=== PATIENT | male | born 1960 | race Caucasian/White ===

== ENCOUNTER → 2017-06-07 | Outpatient (CLI) | payer OTHER ==
[~2017-06-07] MED LIST: FEBU40TA PO
[2017-06-07 19:01] LABS: INFLUENZA B ANTIGEN Neg for Influ B (NEG)
== END | disposition home or self-care (01) ==
LOC: C.LABSPEC 17:49
PROVIDERS: ATTEND Internal Medicine
DX: B34.9 Viral infection, unspecified (principal)

== ENCOUNTER → 2017-07-29 | Outpatient (CLI) | payer OTHER | END | disposition home or self-care (01) | LOC: C.LABSPEC 17:32 | PROVIDERS: ATTEND Internal Medicine | DX: L43.9 Lichen planus, unspecified (principal) ==

== ENCOUNTER 2019-04-10 08:58 | Inpatient (IN) ==
--- NOTE | 2019-03-13 14:34 | PAT Medication Instructions ---
Medication Instructions Date of Service March 13, 2019 Home Medications colchicine [Colcrys] 0.6 mg PO BID PRN cyanocobalamin (vitamin B-12) [Vitamin B-12] 2,500 mcg SUBLINGUAL HS febuxostat [Uloric] 40 mg PO QAM Luz Maria 1 tab PO QAM STOP taking 2 weeks before surgery (or as soon as possible if surgery is within 2 weeks) Luz Maria 1 tab PO QAM STOP taking 48 hours before surgery colchicine [Colcrys] 0.6 mg PO BID PRN febuxostat [Uloric] 40 mg PO QAM Take evening before surgery cyanocobalamin (vitamin B-12) [Vitamin B-12] 2,500 mcg SUBLINGUAL HS Other Notes If you have any questions please call us at [phone] or [phone] or [phone] or [phone]
--- NOTE | 2019-03-16 13:16 | Anesthesiology Consultation ---
Date of Service March 16, 2019 Assessment & Plan (1) Encounter for pre-operative examination: Chart Review Chart Review: Acceptable Risk for Surgery and Patient seen in Pre Admission Testing Teaching & Discussion Pre-Anesthesia Teaching/Discussion Notes: Instructed NPO after midnight before surgery,except medications with 15 cc of water. Medication instructions provided according to the PAT guidelines. History Surgery Operation Date: 04/10/19 13:15 Proposed Procedures p Right Total Shoulder Arthroplasty - Tigre Daniels DO Height/Weight Height: 5 ft 3 in Weight: 105.6 kg Allergies Allergy/AdvReac Type Severity Reaction Status Date / Time allopurinol Allergy Intermediate hives Verified 03/12/19 10:08 Medications Home Medications Medication Instructions Recorded Confirmed Last Taken colchicine [Colcrys] 0.6 mg PO BID PRN 05/01/18 03/16/19 Unknown cyanocobalamin (vitamin B-12) 2,500 mcg SUBLINGUAL HS 05/01/18 03/16/19 04/30/18 [Vitamin B-12] febuxostat [Uloric] 40 mg PO QAM 05/01/18 03/16/19 05/01/18 Luz Maria 1 tab PO QAM 03/12/19 03/12/19 Unknown morinda citrifolia fruit 250 mg mg PO 03/16/19 03/16/19 Unknown capsule Past Medical History Medical History Gout History of rheumatic fever as a child Morbid obesity Osteoarthritis Exercise / Class Metabolic Activity II 4-5 Yardwork/Stairs/Walk up hill (one flight of stairs (no chest pain/no sob)) Past Family History Family History Other No significant family history Past Surgical History Surgical History Hx of colonoscopy Past Anesthesia History No Hx of Anesthesia Complications and No Family Hx of Anesthesia Complications History of PONV No Hx of PONV and No Hx of Motion Sickness Social History Smoking Status: Never smoker Do You Dip or Chew Tobacco: No Hx Alcohol Use: Yes Alcohol type: beer alcohol intake frequency: a few times a month Hx Substance Use: No substance use type: does not use Review of Systems Patient denies chest pain, shortness of breath, dyspnea on exertion, reflux, cough, wheezing, palpitations. Physical Exam Vital Signs VITALS BP 160/92 (per patient, BP typically in normal range/monitoring routinely at home/PCP (Dr. Marques Adams) P 77 TEMP 98.6 SP02 95%RA RESP 16 PHYSICAL Full neck and c-spine range of motion. Full TMJ range of motion. TMD 4 finger breaths Mallampati Score 2 Dentition: several chipped teeth including lower front, missing molars Lungs: clear throughout to auscultation Cardiac: regular rate and rhythm, no murmurs noted Spine: normal Carotid arteries: negative bruit Extremities: no edema Short, thick neck Testing Laboratory Results 03/16/19 13:40 03/16/19 13:40 PT 10.1 Seconds (9.0-12.0) 03/16/19 13:40 INR 1.0 (0.9-1.1) 03/16/19 13:40 APTT 29.9 Seconds (21.0-31.0) 03/16/19 13:40 Blood Type A Positive 03/16/19 13:40 Antibody Screen NEGATIVE 03/16/19 13:40 *Surgeon office made aware of low WBC* Electrocardiogram Date: 03/16/19 Findings: + NSR @ (69) Chest X-Ray Date: 03/16/19 Findings: + NAD
--- NOTE | 2019-03-16 13:56 | XRay Report ---
XR chest Pre-admission PA/Lat CLINICAL HISTORY: PAT preoperative evaluation COMPARISON STUDY: No previous studies for comparison. FINDINGS: The bones soft tissues and hemidiaphragms are normal. The cardiomediastinal silhouette is n ormal. The lungs are clear. The pulmonary vasculature is normal. IMPRESSION: Negative chest. The above report was generated using voice recognition software. It may contain grammatical, syntax or spelling errors. Electronically signed by: Kevin Minor M.D. 03/16/2019 1:55 PM
[2019-03-16 14:30] LABS: Basophils # (auto) 0.01 K/uL (0-0.2); Basophils % (auto) 0.3 %; Eosinophils # (auto) 0.04 K/uL (0-0.5); Eosinophils % (auto) 1.1 %; Hematocrit (blood only) 44.8 % (42-52); Hemoglobin 15.9 g/dL (14.0-18.0); Immature Granulocytes # (auto) 0.01 K/uL (0.00-0.02); Immature Granulocytes % (auto) 0.3 %; Lymphocytes # (auto) 1.28 K/uL (1.2-3.4); Lymphocytes % (auto) 36.2 %; Mean Corpuscular Hgb Conc 35.5 g/dL (32-36); Mean Corpuscular Volume 95.7 fL (80-100); Mean Platelet Volume 9.6 fL (7.4-10.4); Monocytes # (auto) 0.33 K/uL (0.11-0.59); Monocytes % (auto) 9.3 %; Neutrophils # (auto) 1.87 K/uL (1.4-6.5); Neutrophils % (auto) 52.8 %; Platelet Count 200 K/uL (130-400); RDW Coefficient of Variation 12.6 % (11.5-14.5); RDW Standard Deviation 43.4 fL (36.4-46.3); Red Blood Count 4.68 M/uL (4.7-6.1); White Blood Count 3.54 K/uL (4.8-10.8)
[2019-03-16 14:39] LABS: BUN Creatinine Ratio 12.2 (10-20); Calcium 9.7 mg/dl (8.5-10.1); Creatinine Clr Calc Pharmacy 83.1 ml/min; Est GFR (African American) 89.9; Est GFR (Non-African American) 77.5; Potassium 4.1 mmol/L (3.5-5.1)
[2019-03-16 14:51] LABS: Partial Thromboplastin Ratio 1.1; Partial Thromboplastin Time 29.9 Seconds (21.0-31.0); Prothrombin Time 10.1 Seconds (9.0-12.0)
--- NOTE | 2019-04-09 14:54 | History & Physical Report ---
Date of Service April 09, 2019 Assessment & Plan (1) Osteoarthritis of right shoulder: We will proceed with a right total shoulder arthroplasty. Postoperatively he will be placed in a sling and kept overnight in the hospital for postoperative medical management. He has not chosen postoperative physical therapy yet. Present on Admission?: Yes History of Present Illness Chief Complaint: Primary osteoarthritis of the right shoulder Primary Care Provider: Mata Chi MD Richy is a pleasant 58-year-old male who has been dealing with chronic increasing right shoulder pain. X-rays and clinical examination have been diagnostic for primary osteoarthritis of the right shoulder. After failing conservative treatment, he has elected to proceed with a right total shoulder arthroplasty. Allergies Allergy/AdvReac Type Severity Reaction Status Date / Time allopurinol Allergy Intermediate hives Verified 03/12/19 10:08 Home Medications Home Medications Medication Instructions Recorded Confirmed Type colchicine [Colcrys] 0.6 mg PO BID PRN 05/01/18 03/16/19 History cyanocobalamin (vitamin B-12) 2,500 mcg SUBLINGUAL HS 05/01/18 03/16/19 History [Vitamin B-12] febuxostat [Uloric] 40 mg PO QAM 05/01/18 03/16/19 History Luz Maria 1 tab PO QAM 03/12/19 03/12/19 History morinda citrifolia fruit 250 mg mg PO 03/16/19 03/16/19 History capsule Past Med/Surg History Medical History Gout History of rheumatic fever as a child Morbid obesity Osteoarthritis Surgical History Hx of colonoscopy Family History Other No significant family history Social History Preferred Language: Setswana Communication Ability: Effective Cut Press Operator Required: No Beliefs That Will Affect Care: None Current Living Situation: Spouse Other Information That Helps Us Care for You: No Feels Safe at Home: Yes Safety Concerns: Feels Safe At This Time Smoking Status: Never smoker Do You Dip or Chew Tobacco: No ; Second Hand Exposure: No ; Tobacco Cessation Education Requested by Patient: No Hx Alcohol Use: Yes Alcohol type: beer Hx Substance Use: No Review of Systems All systems reviewed & are unremarkable except as noted in HPI & below Physical Exam 2 Constitutional: WD/WN, vitals as above Eyes: PERRL, conjunctivae normal, anicteric sclerae ENMT: external ear and nose normal, oropharynx normal Neck: trachea midline, no thyromegaly Respiratory: normal respiratory effort Cardiovascular: RRR, no murmur, no edema Gastrointestinal (Abdomen): normal bowel sounds, soft, nontender, no hepatosplenomegaly Musculoskeletal: Physical examination of the right shoulder reveals decreased range of motion and crepitis throughout. There is good strength with full can testing and external rotation. There is tenderness palpation along the anterior glenohumeral joint line. The right upper extremity is neurovascularly intact. Psychiatric: A+Ox3, euthymic affect Results & Data Diagnostic Findings Radiographs of the right shoulder show osteoarthritis of the glenohumeral joint. There is joint space narrowing, osteophyte formation, and [id number] articulation.
[~2019-04-10 08:58] MED LIST changes: +ACETAMINOPHEN 500 MG TAB PO SCH; +BUPIVACAINE 0.5 % 5 MG/1 ML PF 10ML VIAL ONE; +CEFAZOLIN 2000MG 2,000 MG/15 ML SYR IV SCH; +FAMOTIDINE 20 MG TAB PO SCH; -FEBU40TA PO; +GABAPENTIN 600 MG DOSE PO SCH; +LR 15ML/HR IV SCH; +LR 60ML/HR IV SCH; +ROPIVACAINE 0.5% HCL/PF 150 MG, BUPIVACAINE 0.5% MPF 30 ML, EPINEPHrine 30MG/30ML (OR U... INSTIL SCH; +TRANEXAMIC ACID 1,000 MG **IV Intra-op IV SCH; +TRANEXAMIC ACID 1,000 MG **IV Pre-op IV SCH
[2019-04-10] MEDS ORDERED: TRANEXAMIC ACID / 0.7% NACL 1000MG/100ML BAG IV ONE (09:36)
--- NOTE | 2019-04-10 10:12 | History & Physical Bridge Note ---
Date of Service April 10, 2019 History & Physical Bridge Note I have examined the patient, reviewed the History & Physical and in the interval since the performance of the History & Physical I have noted the following changes of clinical significance: no changes noted
[2019-04-10] MEDS ORDERED: MIDAZOLAM HCL 1 MG/ML 2ML VIAL ONE (10:19)
[2019-04-10] MEDS ORDERED: fentaNYL citrate 100 MCG/2 ML VIAL ONE ×2 (10:20→12:03)
[2019-04-10] MEDS ORDERED: ROCURONIUM BROMIDE 10 MG/ML 5 ML VIAL ONE (10:23)
[2019-04-10] MEDS ORDERED: ONDANSETRON INJ 2 MG/ML 2 ML VIAL ONE (10:23)
[2019-04-10] MEDS ORDERED: NEOSTIGMINE METHYLSULFATE 5 MG/5 ML SYR ONE (10:23)
[2019-04-10] MEDS ORDERED: PROPOFOL IV EMULSION 10 MG/ML 20 ML VIAL IV ONE (10:23)
[2019-04-10] MEDS ORDERED: GLYCOPYRROLATE 0.2 MG/ML VIAL ONE (10:23)
[2019-04-10] MEDS ORDERED: ORTHO JOINT ANESTHETIC ONE (10:55)
[2019-04-10] MEDS ORDERED: fentaNYL citrate 100 MCG/2 ML VIAL IV PRN (11:06)
[2019-04-10] MEDS ORDERED: ePHEDrine sulfate 50 MG/ML AMP IV PRN (11:06)
[2019-04-10] MEDS ORDERED: ATROPINE SULFATE 0.1 MG/ML 10ML SYR IV PRN (11:06)
[2019-04-10] MEDS ORDERED: ONDANSETRON INJ 2 MG/ML 2 ML VIAL IV PRN ×2 (11:06→15:12)
[2019-04-10] MEDS ORDERED: PHENYLEPHRINE 100MCG/ML 5ML SYR ONE (12:15)
[2019-04-10] MEDS ORDERED: ePHEDrine sulfate 50 MG/ML AMP ONE (12:25)
--- NOTE | 2019-04-10 13:31 | Operative Report ---
PG Post Operative Report Pre & Post Diagnosis Operation Date: 04/10/19 11:50 Pre-Op Diagnosis: RIGHT SHOULDER DEGENERATIVE JOINT DISEASE Post-Op Diagnosis: RIGHT SHOULDER DEGENERATIVE JOINT DISEASE I identified the patient and participated in the time-out.: Yes Procedure Operation Date: 04/10/19 11:50 Actual Procedures p Right Total Shoulder Arthroplasty(Right) - Tigre Daniels DO Surgeon Tigre Daniels DO System Support Technician Tigre Singh PAC Estimated Blood Loss 400 Findings Consistent with Post-Op Diagnosis Specimens Right humeral head Complications none Disposition Disposition: Recovery Room Indications Richy is a pleasant 59-year-old male who presented my office with chronic increasing right shoulder pain. X-rays and clinical examination were diagnostic for advanced osteoarthritis of the right shoulder. After failing conservative treatment, he elected to proceed with a right total shoulder arthroplasty. Description of Procedure Implants used: I used a Biomet Comprehensive total shoulder arthroplasty system with a size 12 press fit mini humeral stem, a size 50 x 21 eccentric humeral head, and a large size glenoid with a Regenerex peg. The glenoid was cemented in place with P alacos G cement. The patient arrived at [facility] for the above procedure. There were seen in the preoperative holding area and the operative extremity was identified and signed. They were given a preoperative antibiotic and an interscalene nerve block. They were taken back to the operating room, laid on table in supine position, and put under general anesthesia. They were then put into the beachchair position. The shoulder was then prepped and draped in sterile fashion. A timeout was done and the patient and the operative extremity was properly identified. A deltopectoral approach was used. Dissection was taken down through the fascia and the deltoid was retracted laterally and the conjoined tendon was retracted medially. The anterior shoulder was exposed. The long head of the biceps tendon was tenodesed to the upper border of the pectoralis major. The subscapularis was then released off the lesser tuberosity with a centimeter of cuff tissue remaining. The inferior capsule was released and the humeral head was dislocated. The rotator cuff was inspected and intact. A canal finding reamer was sent down the center of the humeral canal. Sequential reaming up to a size 12 reamer was done. Offset reamer a proximal humeral resection guide was placed. The proximal humerus was resected at 135 of inclination and 30 of retroversion. Inferior osteophytes were then removed and the glenoid was exposed. Time was spent doing an appropriate labral release. The glenoid measured to be a size large. A Biomet signature guide was then attached onto the anterior rim of the glenoid. A 3.2 mm Steinmann pin was then placed in the total shoulder arthroplasty hole. The glenoid was then reamed with a propeller reamer. The central post cutter was then used to prepare for the central boss. The cannulated peripheral peg drill guide was then placed and 3 peg holes were drilled. The final size large glenoid was then cemented in place with Palacos G cement. Surrounding soft tissues were then injected with 100 cc of an orthopedic pain control cocktail. Once cement had dried the proximal humerus was once again exposed. Sequential broaching of the humerus up to a size 12 broach was done. Off that broach a size 50 x 21 eccentric humeral head was trialed. The shoulder was then reduced, brought through a full range of motion and felt to be stable. The shoulder was then dislocated and the broach was removed. The final size 12 mini humeral stem implant was then impacted into place. A size 50 x 21 eccentric humeral head was then impacted onto the humeral stem. The shoulder was then reduced and once again brought through a full range of motion and felt to be stable. The subscapularis was then tenodesed back to the lesser tuberosity with transosseous FiberWire sutures and side to side sutures with the arm in 45 of external rotation. 2 sutures were placed in the lateral rotator interval. A dilute betadyne lavage was then done for 3 minutes. The joint was then irrigated with normal saline solution. Hemostasis was obtained. The skin was then closed with 2-0 Vicryl, 3-0V lock suture, and akrin. A soft dressing was placed as well a s a regular arm sling. The patient was then extubated and transferred to a hospital bed. There were taken to the postanesthesia care unit in stable condition. The tolerated the procedure well. I attest to the content of the Intraoperative Record and any orders documented therein. Any exceptions are noted below.
--- NOTE | 2019-04-10 14:35 | Anesthesiology Progress Note ---
Date of Service April 10, 2019 Anesthesia Post Procedure Vital Signs Vital Signs: Temp Pulse Pulse Resp BP Pulse Ox 04/10/19 14:25 76 21 119/72 98 04/10/19 14:15 78 18 122/79 97 04/10/19 14:05 97.7 F 83 18 129/67 98 04/10/19 09:18 97.9 F 73 18 147/93 H 97 Pain Intensity Right Shoulder: Pain Intensity: 4 Transfer of Care Handoff Completed per policy Notes Mental Status: alert / awake / arousable and participated in evaluation Patient Amnestic to Procedure: Yes Nausea / Vomiting: adequately controlled Pain: adequately controlled Airway Patency, RR, SpO2: stable & adequate BP & HR: stable & adequate Hydration State: stable & adequate Anesthetic Complications: no major complications apparent and Pt Satisfied with anesthetic care
--- NOTE | 2019-04-10 14:38 | XRay Report ---
XR shoulder RT min 2V routine CLINICAL HISTORY: 59 years-old Male presenting with Post shoulder surgery. TECHNIQUE: Frontal and transcatheter Y views of the right shoulder were obtained. COMPARISON: CT from 03/13/2019. FINDINGS: Interval right shoulder arthroplasty. No malalignment or periprosthetic fracture. Overlying skin stap les. Soft tissue emphysema noted. Soft tissue swelling especially along the posterior aspect of the p roximal humerus likely expected postsurgical. Acromioclavicular joint congruent and with mild hypertr ophic degenerative changes. Low lung volume on the right with right basilar opacity. IMPRESSION: 1. Expected postsurgical appearance of the right shoulder arthroplasty. 2. Low lung volume on the right with right basilar atelectasis suspected. ACT 112: Negative or not required by law. Electronically signed by: Matty Patel M.D. 04/10/2019 2:37 PM
[2019-04-10] MEDS ORDERED: bisacodyL 10 MG SUPP PR PRN (15:12)
[2019-04-10] MEDS ORDERED: NALOXONE HCL 0.4 MG/1 ML VIAL/CARP IV PRN (15:12)
[2019-04-10] MEDS ORDERED: MAGNESIUM HYDROXIDE SUSP 30 ML UDC PO PRN (15:12)
[2019-04-10] MEDS ORDERED: HYDROmorphone INJ 0.5 MG/0.5 ML SYR IV PRN (15:12)
[2019-04-10] MEDS ORDERED: OXYCODONE HCL IR 5 MG TAB (IMMEDIATE RELEASE) PO PRN (15:12)
[2019-04-10] MEDS ORDERED: METOCLOPRAMIDE HCL INJ 5 MG/ML 2 ML VIAL IV PRN (15:12)
[2019-04-10] MEDS ORDERED: SODIUM CHLORIDE 0.9% 1000ML 1,000 ML IV SCH (15:12)
[2019-04-10] MEDS: KETOROLAC 30 MG/ML VIAL IV SCH ×2 (18:51→23:25)
[2019-04-10] MEDS ORDERED: SENNA 8.6 MG TAB PO SCH (21:00)
[2019-04-10] MEDS: ACETAMINOPHEN 500 MG TAB PO SCH (21:10)
[2019-04-10] MEDS: DOCUSATE SODIUM 100 MG CAP PO SCH (21:10)
[2019-04-10] MEDS: CEFAZOLIN 2000MG 2,000 MG/15 ML SYR IV SCH (21:11)
[2019-04-11] MEDS: CEFAZOLIN 2000MG 2,000 MG/15 ML SYR IV SCH (04:48)
[2019-04-11] MEDS: ACETAMINOPHEN 500 MG TAB PO SCH (05:41)
[2019-04-11] MEDS: KETOROLAC 30 MG/ML VIAL IV SCH (05:41)
[2019-04-11 05:58] LABS: Hemoglobin 12.8 g/dL (14.0-18.0); Immature Granulocytes # (auto) 0.01 K/uL (0.00-0.02); Immature Granulocytes % (auto) 0.1 %; Lymphocytes # (auto) 0.64 K/uL (1.2-3.4); Lymphocytes % (auto) 6.2 %; Mean Corpuscular Hemoglobin 33.3 pg (25-34); Mean Corpuscular Hgb Conc 34.6 g/dL (32-36); Mean Corpuscular Volume 96.4 fL (80-100); Mean Platelet Volume 9.4 fL (7.4-10.4); Monocytes # (auto) 0.88 K/uL (0.11-0.59); Monocytes % (auto) 8.6 %; Neutrophils # (auto) 8.74 K/uL (1.4-6.5); Neutrophils % (auto) 85.1 %; Platelet Count 215 K/uL (130-400); RDW Coefficient of Variation 12.6 % (11.5-14.5); RDW Standard Deviation 44.2 fL (36.4-46.3); Red Blood Count 3.84 M/uL (4.7-6.1); White Blood Count 10.27 K/uL (4.8-10.8)
[2019-04-11 06:30] LABS: BUN Creatinine Ratio 15.3 (10-20); Calcium 8.7 mg/dl (8.5-10.1); Creatinine Clr Calc Pharmacy 88.1 ml/min; Est GFR (African American) 95.7; Est GFR (Non-African American) 82.6; Potassium 4.2 mmol/L (3.5-5.1)
--- NOTE | 2019-04-11 07:34 | Orthopedic Progress Note ---
Date of Service April 11, 2019 Assessment & Plan (1) History of total replacement of right shoulder joint: Overall he is doing very well. Is not having much pain in the right shoulder. He is happy with his progress. He will be seen by physical therapy today for ambulation and range of motion exercises. We will discharge him to home later today. He does not want any pain medications for discharge. I will see him in the office in 2 weeks. Present on Admission?: Yes Subjective Richy was seen and examined at bedside this morning. Overall is doing very well. Is not having any pain in the right shoulder. He is happy with his progress and has no complaints. Physical Exam Musculoskeletal: Physical examination of the right shoulder, the dressing is clean and dry. He is wearing a sling as instructed. His radial, median, and ulnar nerves are checked and intact his wrist. His axillary nerve was not checked yet. Results & Data Vital Signs (Past 12 Hours) Vital Signs Temp Pulse Resp BP Pulse Ox 04/11/19 02:56 36.6 C 84 16 97/61 L 94 04/10/19 23:58 36.8 C 84 16 108/67 94 Laboratory Results H & H 03/16/19 04/11/19 Range/Units 13:40 05:25 Hgb 15.9 12.8 L (14.0-18.0) g/dL Hct 44.8 37.0 L (42-52) % Coagulation 03/16/19 Range/Units 13:40 INR 1.0 (0.9-1.1) Diagnostic Findings Postoperative x-rays of the right shoulder show the prosthesis to be in anatomic alignment without any evidence of fracture, dislocation, or loosening. PG Care Time/CCT Total # of Minutes Spent Total Time Spent with Patient: Total time spent is greater than 50% in coordination of care (as documented) at patient's floor/unit and/or counseling patient:
--- NOTE | 2019-04-11 07:37 | Discharge Summary ---
Date of Service April 11, 2019 Admission HPI Per Admitting Provider Richy is a pleasant 58-year-old male who has been dealing with chronic increasing right shoulder pain. X-rays and clinical examination have been diagnostic for primary osteoarthritis of the right shoulder. After failing conservative treatment, he has elected to proceed with a right total shoulder arthroplasty. Principal Diagnosis Right total shoulder arthroplasty Discharge Data Allergies Allergy/AdvReac Type Severity Reaction Status Date / Time allopurinol Allergy Intermediate hives Verified 04/10/19 09:16 Consultations 04/10/19 15:12 Consult Case Management - Discharge Planning Routine Procedures Performed Operation Date: 04/10/19 11:50 Actual Procedures p Right Total Shoulder Arthroplasty(Right) - Tigre Daniels DO Hospital Course (1) History of total replacement of right shoulder joint: On April 10, 2019 Richy arrived at [facility] and underwent a right total shoulder arthroplasty without complication. He had a general anesthetic and a right interscalene nerve block. Postoperatively he was placed in arm sling and discharged to general orthopedic floors. His hospital course was uneventful. On postop day #1 his H&H was stable and his pain was well controlled. He was able to participate well with physical therapy doing ambulation and range of motion exercises. He was then discharged home with physical therapy. He will follow-up with orthopedics in 2 weeks. Total Time Total Time Spent Total Time Spent (In Minutes): 20 Discharge Plan Discharge Items Patient Disposition: Home - Home Health Services Reason For Visit: RIGHT SHOULDER DEGENERATIVE JOINT DISEASE Discharge Diagnosis: Right total shoulder arthroplasty Activity: As commented below Non-emergency contact: Surgeon Call non-emergency contact if: your wound has increased redness and your wound has increased drainage Follow-up/Referrals: Mata Chi MD [Primary Care Provider] - Diet: Regular Addtl Attending Provider Instructions: Activity and Therapy Recommendations: * If you are using [facility] then therapy will be provided at your home until they feel you have accomplished all of your goals. * If you are using [facility] then Physical Therapy will be provided until they feel you are ready to start Outpatient Physical Therapy. * If you are not using home therapy then Outpatient Physical Therapy should start about 3-5 days from your day of surgery. Therapy will last about 8-12 weeks * Wear your sling for 3 weeks, unless otherwise instructed. You may remove your sling to shower and to dress, but otherwise, you should be in your sling at all times, including while sleeping * The shoulder replacement is very stable and you can use your hand while in the sling * You were shown a series of exercises in the hospital. Do these exercises daily including the exercises you were shown in physical therapy. Medications: * Narcotic You will likely be sent home from the hospital with a prescription for the narcotic pain medication that worked best throughout your stay. * Other medications may be prescribed for specific circumstances. If you have any questions, please call the office at . * Resume previous home medications unless otherwise instructed Dressing Care: Leave the plastic dressing in place for 5 days. After 5 days you may remove the plastic dressing. If the incision is not draining then you may leave the karin open to air. If there is a little bit of drainage or if the karin are getting stuck on your clothing then cover the incision with a dry dressing. The karin will be removed at your 2 week follow-up appointment. Showering: You may shower with the plastic dressing in place. Let the shower spray hit the other shoulder. You can pat the plastic dry. If the dressing becomes wet underneath the plastic then simply remove the dressing. Keep the incision dry until you are 5 days out from the day of surgery. At that time you can shower with the karin exposed. Let the soapy shower water run over the karin and pat them dry. Do not scrub or soak the incision. Things To Watch For: * Drainage from the incision site that occurs more than one week after your surgery. * Increased redness at the incision site. * Fever above 102 degrees Fahrenheit. * Unusual chest pain or shortness of breath. * Call [facility] at with any of the above hyun serna Follow-Up Visit: Follow-up with Dr. Daniels 2-3 weeks after your day of surgery. An appointment was probably scheduled when you signed-up for surgery in the office. If you have any questions call Office Instructions: More detailed instructions as well as Frequently Asked Questions were provided in a folder by our office when you signed-up for surgery. Please review these instructions when you get home. If you have any further questions or concerns, please feel free to call the office at [phone] Pending Studies at Discharge: No Stand-Alone Forms: [facility], Smoking Cessation Medications and DC Order Prescriptions: Continued cyanocobalamin (vitamin B-12) [Vitamin B-12] 2,500 mcg Tablet, Sublingual 2,500 mcg SUBLINGUAL HS RF: 0 colchicine [Colcrys] 0.6 mg Tablet 0.6 mg PO BID PRN (Reason: GOUT FLARE UPS) RF: 0 febuxostat [Uloric] 40 mg Tablet 40 mg PO QAM RF: 0 Luz Maria 1 tab PO QAM RF: 0 Discharge Orders: Discharge Order (Routine); Ordered 04/11/19 Ordered By: Tigre Daniels Admission Data Admit Date/Time: 04/10/19 13:44 Attending Provider: Tigre Daniels Admit Provider: Tigre Daniels Primary Care Provider: Mata Chi
[2019-04-11] MEDS ORDERED: dexAMETHasone 4 MG TAB PO SCH (08:00)
[2019-04-11] MEDS: DOCUSATE SODIUM 100 MG CAP PO SCH (08:57)
[2019-04-11] MEDS ORDERED: NONI PO SCH (09:00)
[2019-04-11] MEDS ORDERED: MULTIVITAMIN TAB PO SCH (09:00)
[2019-04-11] MEDS ORDERED: FEBUXOSTAT 40 MG TABLET PO SCH (09:00)
== END 2019-04-11 10:54 | disposition home or self-care (01) | DRG 483 ==
LOC: ASU 08:58 → 3E 13:44